=== PATIENT | male | born 1995 | race African-American/Black ===

== ENCOUNTER 2017-06-03 18:58 | Emergency (ER) | payer MEDICAID ==
[~2017-06-03] VITALS: Ht 188 cm; Wt 116.0 kg
[2017-06-03 21:27] VITALS: BP 135/84
== END 2017-06-03 21:28 | disposition home or self-care (01) ==
LOC: ER 18:58
DX: J11.1 Influenza due to unidentified influenza virus with other respiratory manifestations (principal); Z98.890 Other specified postprocedural states
CPT/HCPCS: 99283